=== PATIENT | male | born 1960 | race Two or more races ===

== ENCOUNTER 2024-02-16 11:21 | Emergency (ER) | payer MEDICAID ==
[~2024-02-16] VITALS: Ht 170.2 cm; Wt 5.0 kg
[~2024-02-16 11:21] MED LIST: APIX5TAB MT; FURO-151 MT; LEVO-65 MT; SULF1TAB48 MT
[2024-02-16 11:25] VITALS: O2SAT 97
[2024-02-16] MEDS ORDERED: ACET-2708 MT (13:05)
[2024-02-16] MEDS ORDERED: CIPR3.5O EACHEYE (13:05)
[2024-02-16] MEDS ORDERED: OLOP2.5D12 EACHEYE (13:05)
[2024-02-16 13:29] VITALS: BP 138/73; PULSE 70; RESP 18; TEMP 98.6
== END 2024-02-16 13:29 | disposition home or self-care (01) ==
LOC: ER 11:21
DX: M21.962 Unspecified acquired deformity of left lower leg (principal); I10 Essential (primary) hypertension; Z88.0 Allergy status to penicillin; Z88.9 Allergy status to unspecified drugs, medicaments and biological substances; Z88.1 Allergy status to other antibiotic agents; Z79.899 Other long term (current) drug therapy; Z98.890 Other specified postprocedural states
CPT/HCPCS: 99282

== ENCOUNTER 2024-06-01 20:03 | Emergency (ER) | payer MEDICAID ==
[~2024-06-01] VITALS: Ht 167.6 cm; Wt 76.0 kg
[~2024-06-01 20:03] MED LIST changes: +ACET-2708 MT; +CIPR3.5O EACHEYE; -FURO-151 MT; +FURO80TA87 MT; +OLOP2.5D12 EACHEYE
[2024-06-01 20:06] VITALS: BP 120/72; PULSE 76; RESP 15; TEMP 97.6; O2SAT 97
[2024-06-01 23:10] LABS: BASOPHILS % 0.6 % (0.0-2.0); EOSINOPHILS % 0.8 % (0.0-5.0); HEMATOCRIT. 45.1 % (42.0-52.0); HEMOGLOBIN. 15.4 g/dL (14.0-18.0); LYMPHOCYTES % 17.1 % (20.0-50.0); MEAN CORPUSCULAR HEMOGLOBIN 29.7 pg (28.0-32.0); MEAN CORPUSCULAR HGB CONC 34.1 g/dL (31.0-37.0); MEAN CORPUSCULAR VOLUME 87.1 fL (80.0-94.0); MEAN PLATELET VOLUME 8.3 fl (7.4-10.4); MONOCYTES % 8.7 % (2.0-8.0); NEUTROPHILS % 72.8 % (40.0-76.0); PLATELET 198 x1000/uL (130-400); RED BLOOD CELL COUNT 5.18 mill/uL (4.7-6.1); RED CELL DISTRIBUTION WIDTH 15.2 % (11.6-14.6); WHITE BLOOD COUNT 5.6 x1000/uL (4.5-11.0)
[2024-06-01 23:19] LABS: CHLORIDE 109 mEq/L (98-107); POTASSIUM 3.9 mEq/L (3.5-5.1); SODIUM 141 mEq/L (136-145)
[2024-06-01 23:20] LABS: CARBON DIOXIDE 23 mEq/L (21-32)
[2024-06-01 23:21] LABS: CALCIUM 9.8 mg/dL (8.7-10.4)
[2024-06-01 23:25] LABS: CREATININE 0.9 mg/dL (0.6-1.3); GLUCOSE 100 mg/dL (70-105)
[2024-06-01 23:26] LABS: UREA NITROGEN BLOOD 13 mg/dL (9-23)
[2024-06-01 23:27] LABS: TROPONIN I HIGH SENSITIVITY < 4 ng/L (3.0-53)
[2024-06-02] MEDS: HYDROCODONE/ACETAMINOPHEN 5/325MG TABLET PO ONE (00:30)
[2024-06-02] MEDS ORDERED: T3 PO (02:36)
== END 2024-06-02 03:38 | disposition home or self-care (01) ==
LOC: ER 20:03
DX: S80.12XA Contusion of left lower leg, initial encounter (principal); I11.0 Hypertensive heart disease with heart failure; I50.9 Heart failure, unspecified; I95.9 Hypotension, unspecified; Z79.899 Other long term (current) drug therapy; Z88.0 Allergy status to penicillin; W18.39XA Other fall on same level, initial encounter; Y93.89 Activity, other specified; Y92.89 Other specified places as the place of occurrence of the external cause; Y99.8 Other external cause status
CPT/HCPCS: 36415; 71045; 73600; 73700; 80048; 83880; 84484; 85025; 93005; 99285